=== PATIENT | male | born 1935 | race Caucasian/White ===

== ENCOUNTER 2017-12-20 07:45 | Outpatient (CLI) | payer MEDICARE ==
[2017-12-20] MEDS ORDERED: LIDOCAINE WITH 8.4% SOD BICARB 3 ML DISP.SYRIN. INJ ONE (08:15)
[2017-12-20] MEDS ORDERED: IOHEXOL 180 MG/ML 10 ML VIAL. IT ONE (08:15)
--- NOTE | 2017-12-20 10:24 | RAD ---
Lumbar myelogram, 12/20/2017: History: Back and right leg pain, radiculopathy Under local anesthesia, aseptic conditions and fluoroscopic guidance a lumbar puncture was performed at the upper L3 level utilizing a 25-gauge Roberth spinal needle. Good clear CSF flow was obtained following which 14 cc of Omnipaque 180 was injected into the thecal sac. The spinal needle was then removed and hemostasis obtained. Appropriate digital images were then obtained. 2.5 minutes of fluoroscopy time is utilized. 11 fluoroscopic spot images were recorded. The patient tolerated the procedure well and was sent to CT in good condition. Following findings were delineated on the myelogram: 1. There are moderate anterior extradural defects at L2-3, L3-4 and L4-5 with mild anterior extradural defects at L1-2 and L5-S1. There also moderate posterior extradural defects at L3-4 and L2-3. There is mild associated central spinal stenosis at L2-3, best seen on the upright views. 2. There is a moderate left anterolateral extradural defect at L3-4. 3. There is a moderate right anterolateral extradural defect centered just inferior to the L4-5 disc level on the upright oblique view, at the level of the origin of the right L5 nerve root sleeve. There is associated poor opacification of the right L5 nerve root sleeve in this position. 4. There is slight anterolisthesis at L4-5 on the upright flexion view. 5. There is mild central spinal stenosis at L2-[address] upright views[address] CT of the lumbar spine-post myelogram, 12/20/2017: Multidetector CT imaging was performed with multiplanar reconstructions produced. The following findings are delineated: 1. No fracture or destructive bony lesion is seen. 2. At L1-2 there is no significant posterior disc bulge or protrusion. The central spinal canal and neural foramina are well maintained. 3. At at L2-3 there is mild broad-based posterior disc bulging. The thecal sac measures 10 mm in AP diameter at the midline in the supine position for the CT scans. The neural foramina are well maintained. 4. At L3-4 there is moderate broad-based posterior disc bulging. There are moderate degenerative changes involving the facet joints. The central spinal canal is well maintained. There is moderate inferior foraminal narrowing, right greater than left. 5. At L4-5 there is moderate broad-based posterior disc bulging which is most prominent laterally on the right. There are moderate degenerative changes involving the facet joints bilaterally. The central spinal canal is not stenotic. There is moderate inferior foraminal encroachment, more so on the right. 6. At L5-S1 there is mild broad-based posterior disc bulging. There are moderate degenerative changes involving the facet joints. The central spinal canal is well maintained. There is minimal inferior foraminal narrowing bilaterally. 7. Incidental note is made of extensive aortoiliac calcific plaquing. Bilateral renal cysts are present. One of these in the lower pole of the left kidney demonstrates minimally calcified septae. Moderate sigmoid diverticulosis is present. A cystic structure along the left side of the urinary bladder is most likely related to a penile implant type device IMPRESSION: 1. Mild to moderate multilevel degenerative changes as described above. 2. Mild central spinal stenosis at L2-3 in the upright position. 3. Extensive facet joint arthropathy at L4-5 with slight anterolisthesis in the upright flexion position. 4. Moderate posterior disc protrusion and foraminal narrowing at L4-5, right greater than left. 5. Moderate right foraminal narrowing at L3-4. PQRS Compliance Statement: One or more of the following individualized dose reduction techniques were utilized for this examination: 1. Automated exposure control 2. Adjustment of the mA and/or kV according to patient size 3. Use of iterative reconstruction technique
== END 2017-12-20 10:45 | disposition home or self-care (01) ==
LOC: RAD 07:45
PROVIDERS: ATTEND Neurological Surgery
DX: M48.061 Spinal stenosis, lumbar region without neurogenic claudication (principal); M51.26 Other intervertebral disc displacement, lumbar region; M51.36 Other intervertebral disc degeneration, lumbar region; M12.88 Other specific arthropathies, not elsewhere classified, other specified site; N28.1 Cyst of kidney, acquired; K57.30 Diverticulosis of large intestine without perforation or abscess without bleeding
CPT/HCPCS: 72132; 72265; Q9965

== ENCOUNTER → 2017-12-27 | Outpatient (CLI) | payer MEDICARE ==
[~2017-12-27] MED LIST: CHOL10003 PO; DOCU-109 PO; DOXA8TAB59 PO; FINA5TAB4 PO; GABA-585 PO; GLUC100018 PO; HYDR-2758 PO; METH750T2 PO; MULT1TAB52 PO; SIMV40TA3 PO; TIOT18CA IH
[2017-12-27 13:31] LABS: BASO # 0.1 x10^3/uL (0.0-0.2); BASO % 1 % (0-3); EOS # 0.1 x10^3/uL (0.0-0.7); EOS % 2 % (0-3); HEMATOCRIT 40.1 % (39.0-53.0); LYMPH # 1.7 x10^3/uL (1.0-4.8); LYMPH % 19 % (24-48); MEAN CORPUSCULAR HEMOGLOBIN 33 pg (25-35); MEAN CORPUSCULAR HGB CONC 35 g/dL (31-37); MEAN CORPUSCULAR VOLUME 93 fL (79-100); MONO # 0.5 x10^3/uL (0.0-1.1); MONO % 6 % (0-9); NEUT # 6.4 x10^3uL (1.8-7.7); NEUT % 73 % (31-73); PLATELET COUNT 180 x10^3/uL (140-400); RED BLOOD COUNT 4.31 x10^6/uL (4.30-5.70); WHITE BLOOD COUNT 8.8 x10^3/uL (4.0-11.0)
[2017-12-27 13:53] LABS: ALBUMIN 3.7 g/dL (3.4-5.0); CALCIUM 9.2 mg/dL (8.5-10.1); CREATININE 0.8 mg/dL (0.7-1.3); GFR 92.5; POTASSIUM 4.3 mmol/L (3.5-5.1); TOTAL BILIRUBIN 0.5 mg/dL (0.2-1.0); TOTAL PROTEIN 7.4 g/dL (6.4-8.2)
== END | disposition home or self-care (01) ==
LOC: SURGPAT 12:46
PROVIDERS: ATTEND Neurological Surgery
DX: Z01.818 Encounter for other preprocedural examination (principal); M48.062 Spinal stenosis, lumbar region with neurogenic claudication; M51.16 Intervertebral disc disorders with radiculopathy, lumbar region; Z88.0 Allergy status to penicillin
CPT/HCPCS: 36415; 80053; 85025; 87641

== ENCOUNTER 2018-01-06 08:01 | Observation (INO) | payer MEDICARE ==
--- NOTE | 2018-01-05 23:47 | PREOP HP ---
DATE OF SERVICE: 01/06/2018 HISTORY OF PRESENT ILLNESS: The patient is a pleasant 82-year-old who in 2017 underwent lumbar surgery by another physician and did poorly. His problem is low back pain and pain, which radiates in the anterior lateral thigh on the right side as well as the right lateral leg, foot. He has a tingling sensation in the same distribution. The problem has been present for about 1 year. He rates his pain as a 2-3/10. Standing, sitting and lying for a time increases pain. Changing positions seems to help. He has had epidural steroid injections, which did not help significantly. He has had physical therapy, which was not of benefit. He has had a spinal cord stimulator without help. I sent him with lumbar myelography. PAST MEDICAL HISTORY: Prostate cancer, COPD, scarlet fever, shingles, diabetes. PAST SURGICAL HISTORY: Left shoulder surgery in 2013, right shoulder surgery in 2014, [facility] 2016, laminectomy in 2017. SOCIAL HISTORY: Retired. . Exercises weekly. Denies current substance, alcohol and tobacco use. Drinks coffee daily. ALLERGIES: PENICILLIN. CURRENT MEDICATIONS: Simvastatin, doxazosin, finasteride, gabapentin, vitamin D, glucosamine, multivitamin, Motrin and Tylenol. REVIEW OF SYSTEMS: A 12-point review of systems was obtained and is noncontributory except that mentioned above. PHYSICAL EXAMINATION: NEUROSURGERY EXAMINATION: GENERAL APPEARANCE: Alert, pleasant, in no acute distress. HEAD: Normocephalic, atraumatic. SKIN: Warm and dry. Well-healed lumbar incision. MUSCULOSKELETAL: Lumbar paraspinal muscle bulk is normal, restricted range of motion of the lumbar spine, [id number] tenderness of lower lumbar spine to palpation, normal range of motion of the lower extremities bilaterally. EXTREMITIES: No clubbing, cyanosis or edema. NEUROLOGIC: Alert and oriented x 3, normal recent and remote memory, strength 5/5 in bilateral lower extremities, sensory was intact to light touch in bilateral lower extremities except for a decrease in light touch with involving right foot, reflexes were trace and symmetric in the lower extremities bilaterally, negative straight leg raising bilaterally, antalgic gait favoring the right leg. IMAGING: I reviewed a lumbar myelogram and post-myelogram CT scan. On that study, there is a moderate right anterior lateral extradural defect centered just inferior to the L4-L5 disk on the right oblique view. There is a poor opacification of the right L5 nerve root. On the CT portion, there is a moderate broad-based posterior disk bulge, which is prominent laterally on the right side. There is moderate inferior foraminal encroachment. ASSESSMENT/PLAN: I believe the problems at L4-L5 on the right are responsible for the majority of his pain. This appears to be primarily degenerative arthritis plus significant right-sided disc bulging. My recommendation is that we perform a micro hemilaminotomy and transforaminal decompression to decompress the proximal right foramen and right L5 root. I did discuss this with him in detail. He would like to go ahead. We will make the arrangements. DONALD HERNANDEZ MD DR: SHERWIN/marion JOB#: [id number] / [id number] BRIANA
[2018-01-06] VITALS (7 sets, daily range): BP systolic 102–163; BP diastolic 51–61
[~2018-01-06] VITALS: Ht 170.2 cm; Wt 73.3 kg
[~2018-01-06 08:01] MED LIST changes: +BACITRACIN 50,000 UNIT in IV NORMAL SALINE 1000ML BAG 1,000 ML IRR ONE; -DOCU-109 PO; -HYDR-2758 PO; -METH750T2 PO; +VANCOMYCIN 1GM IVPB FOR OMNI 250 ML IV ONE
[2018-01-06] MEDS ORDERED: GELATIN SPONGE SIZE 100. ONE (08:44)
[2018-01-06] MEDS ORDERED: BUPIVAC MPF-EPI 0.5%-1:200000 30 ML VIAL. ONE (08:44)
[2018-01-06] MEDS ORDERED: THROMBIN TOPICAL 20,000 UNIT SPRAY.SYRN KIT TP ONE (08:44)
[2018-01-06] MEDS ORDERED: KETOROLAC 60 MG/2 ML INJ FOR OR. ONE (08:44)
[2018-01-06] MEDS ORDERED: SCOPOLAMINE 1.5MG PATCH. TD ONE (09:00)
[2018-01-06] MEDS: IV RINGERS,LACTATED 1000ML 1,000 ML IV SCH ×2 (09:04→19:39)
[2018-01-06] MEDS ORDERED: MIDAZOLAM HCL/PF 2 MG/2 ML VIAL. ONE (10:17)
[2018-01-06] MEDS ORDERED: ROCURONIUM 50 MG/5 ML VIAL. ONE (10:18)
[2018-01-06] MEDS ORDERED: REMIFENTANIL 2 MG VIAL. IV ONE (10:18)
[2018-01-06] MEDS ORDERED: PHENYLEPHRINE in 0.9% NACL PF 1 MG/10 ML SYRINGE. IV ONE (10:18)
[2018-01-06] MEDS ORDERED: fentaNYL PF VIAL 250 MCG/5 ML VIAL ONE (10:18)
[2018-01-06] MEDS ORDERED: 0.9 % SODIUM CHLORIDE 20 ML VIAL. IJ ONE ×2 (10:18)
[2018-01-06] MEDS ORDERED: PROPOFOL 50 ML IV ONE (10:18)
[2018-01-06] MEDS ORDERED: PROPOFOL 20 ML IV ONE (10:19)
[2018-01-06] MEDS ORDERED: ONDANSETRON PF 4 MG/2 ML VIAL. ONE (10:19)
[2018-01-06] MEDS ORDERED: DEXAMETHASONE SOD PHOS 20 MG/5 ML VIAL. ONE (10:19)
[2018-01-06] MEDS ORDERED: DESFLURANE > 120 MINUTES IH ONE (10:19)
[2018-01-06] MEDS ORDERED: LIDOCAINE 2% PF Vial for OR 5 ML VIAL. ONE (10:19)
[2018-01-06] MEDS ORDERED: DEXAMETHASONE SOD PHOS 20 MG/5 ML VIAL. IV ONE (11:15)
[2018-01-06] MEDS ORDERED: IV RINGERS,LACTATED 1000ML 1,000 ML IV SCH (11:36)
[2018-01-06] MEDS ORDERED: fentaNYL PF VIAL 100 MCG/2 ML VIAL IV PRN ×2 (11:45→16:15)
[2018-01-06] MEDS ORDERED: ONDANSETRON PF 4 MG/2 ML VIAL. IV PRN (11:45)
[2018-01-06] MEDS ORDERED: HYDROmorphone 2 MG/ML VIAL IV PRN (11:45)
[2018-01-06] MEDS ORDERED: MORPHINE SULFATE 2 MG/ML VIAL. IV PRN (11:45)
[2018-01-06] MEDS ORDERED: PROCHLORPERAZINE 10 MG/2 ML VIAL. IV PRN (11:45)
[2018-01-06] MEDS ORDERED: LIDOCAINE 1% PF 2 ML VIAL. ID PRN (11:45)
[2018-01-06] MEDS ORDERED: PHENYLEPHRINE 10 MG/ML VIAL. ONE (13:27)
[2018-01-06] MEDS ORDERED: ePHEDrine PF IN SALINE 50 MG/5 ML DISP.SYRIN IV ONE (13:31)
[2018-01-06] MEDS ORDERED: NEOSTIGMINE METHYLSULFATE 5 MG/5 ML SYRINGE. ONE (15:22)
[2018-01-06] MEDS ORDERED: GLYCOPYRROLATE 1 MG/5 ML VIAL. ONE (15:22)
[2018-01-06] MEDS: fentaNYL PF VIAL 100 MCG/2 ML VIAL IV PRN ×2 (16:00→16:16)
[2018-01-06] MEDS ORDERED: 0.9 % SODIUM CHLORIDE 10 ML DISP.SYRIN. IV PRN (16:15)
[2018-01-06] MEDS ORDERED: MAGNESIUM HYDROXIDE 2,400 MG/30 ML ORAL.SUSP. PO PRN (16:15)
[2018-01-06] MEDS ORDERED: CALCIUM CARBONATE 500 MG TAB.CHEW PO PRN (16:15)
[2018-01-06] MEDS ORDERED: ACETAMINOPHEN 325 MG TABLET. PO PRN (16:15)
[2018-01-06] MEDS ORDERED: diphenhydrAMINE HCL 25 MG CAPSULE PO PRN (16:15)
[2018-01-06] MEDS ORDERED: NON FORMULARY ITEM (Tiotropium Bromide (Spiriva) 2 INH) IH PRN (16:15)
[2018-01-06] MEDS ORDERED: HYDROcodone/APAP 5/325MG 1 TAB TABLET PO PRN (16:15)
[2018-01-06] MEDS ORDERED: MAG HYDROX/ALUMINUM HYD/SIMETH 30 ML ORAL.SUSP PO PRN (16:15)
[2018-01-06] MEDS: HYDROcodone/APAP 5/325MG 1 TAB TABLET PO PRN (16:51)
[2018-01-06] MEDS: METHOCARBAMOL 750 MG TABLET PO SCH (20:09)
[2018-01-06] MEDS: DOCUSATE SODIUM 100 MG CAPSULE. PO SCH (20:09)
[2018-01-06] MEDS: POTASSIUM CL 20MEQ D5-0.45NACL 1,000 ML IV SCH (20:20)
[2018-01-06] MEDS: IPRATRPIUM/ALBUTEROL 0.5/2.5MG 3 ML NEBU. NEB SCH (20:30)
[2018-01-06] MEDS ORDERED: SIMVASTATIN 40 MG TABLET. PO SCH (21:00)
[2018-01-07] MEDS ORDERED: FINASTERIDE 5 MG TABLET. PO SCH ×2 (02:45→09:00)
[2018-01-07 03:00] VITALS: BP 107/54
[2018-01-07] MEDS: POTASSIUM CL 20MEQ D5-0.45NACL 1,000 ML IV SCH (06:20)
[2018-01-07 07:00] VITALS: BP 119/58
--- NOTE | 2018-01-07 08:27 | DISCH ---
DISCHARGE INSTRUCTIONS Condition on Discharge Condition on Discharge: Stable Activity After Discharge Activity Instructions for Disc: Activity as tolerated, Avoid exertion Other activity instructions: no driving for a week Bathing Instructions: Shower-keep dressing dry, No Tub Bath until see Lifting Instructions after Dis: No heavy lifting, No pulling or pushing, Do not lift >10 pounds Diet after Discharge Additional Diet Restrictions: resume home diet Wound Incision Care Wound/Incision Care: Ice to area for comfort Other wound/incision instructi: may remove dressing in 48 hrs if dry, then may shower, no soaking Contacting the after DC Call your doctor for: Concerns you may have Follow-Up Follow up with: Dr. Hernandez's nurse in 2 weeks [phone] DONALD HERNANDEZ MD Jan 07, 2018 08:27
[2018-01-07] MEDS ORDERED: METH750T2 PO (08:30)
[2018-01-07] MEDS ORDERED: DOCU-109 PO (08:30)
[2018-01-07] MEDS ORDERED: HYDR-2758 PO (08:30)
[2018-01-07] MEDS: DOCUSATE SODIUM 100 MG CAPSULE. PO SCH (08:44)
[2018-01-07] MEDS: METHOCARBAMOL 750 MG TABLET PO SCH ×2 (08:44→14:08)
[2018-01-07] MEDS ORDERED: GABAPENTIN 100 MG CAPSULE. PO SCH (09:00)
[2018-01-07] MEDS ORDERED: NON FORMULARY ITEM (Glucosamine Sulfate 2KCL (Glucosamine) 500 MG) PO SCH (09:00)
[2018-01-07] MEDS ORDERED: MULTIVITAMIN with MINERAL TABLET. PO SCH (09:00)
[2018-01-07] MEDS ORDERED: CHOLECALCIFEROL (VITAMIN D3) 1,000 UNIT TABLET PO SCH (09:00)
[2018-01-07] MEDS ORDERED: DOXAZOSIN MESYLATE 4 MG TABLET. PO SCH (09:00)
[2018-01-07] MEDS: IPRATRPIUM/ALBUTEROL 0.5/2.5MG 3 ML NEBU. NEB SCH ×2 (10:05→13:48)
[2018-01-07 11:00] VITALS: BP 130/66
[2018-01-07] MEDS: IV RINGERS,LACTATED 1000ML 1,000 ML IV SCH (11:55)
[2018-01-07] MEDS: HYDROcodone/APAP 5/325MG 1 TAB TABLET PO PRN (14:16)
--- NOTE | 2018-01-10 18:06 | PATHOLOGY ---
[facility] Accession Number: [id number] . 01 Material submitted: . LUMBAR DECOMPRESSION AND DISC . 01 Clinician provided ICD-10: M48.061 . 01 Clinical history: . Lumbar stenosis with neurogenic claudication, herniated disc with radiculopathy . 02 Diagnosis: Segments of fibrocartilaginous, fibroadipose, and skeletal muscle tissue and bone, lumbar decompression and disc: - Degenerative changes of fibrocartilaginous tissue. (JPM:joão; 01/10/2018) QMS/01/10/2018 . 02 Comment: There is no evidence of an acute inflammatory process or malignancy. . 02 Electronically signed: . Frankie Yuan MD, Pathologist NPI- [id number] . 01 Gross description: . The specimen is received in formalin, labeled "Kenn Bhatti, lumbar decompression and disc", are multiple cruz-white rubbery soft tissues admixed with lakhani bone measuring 3.0 x 2.4 x 0.9 cm in aggregate. Fur Finisher tissue is submitted in A1 following decalcification. ([facility]; 01/09/2018) SHS/SHS . 02 Pathologist provided ICD-10: M51.36 . 02 CPT . 972848, [id number] Specimen Comment: A courtesy copy of this report has been sent to Specimen Comment: [phone]. Specimen Comment: Report sent to Performed at: 01 [facility] [address], [place] [id number] MD Kodak Gipson MD Phone: [phone] Performed at: 02 [facility] [address] [place], [place] [id number] MD Frankie Yuan MD Phone: [phone]
--- NOTE | 2018-01-17 20:41 | OP ---
DATE OF SURGERY: 01/06/2018 PREOPERATIVE DIAGNOSES: Herniated lumbar disc with lateral recess and foraminal stenosis L4-L5 right with right lumbar radiculopathy. POSTOPERATIVE DIAGNOSES: Herniated lumbar disc with lateral recess and foraminal stenosis L4-L5 right with right lumbar radiculopathy. OPERATION PERFORMED: Reop hemilaminotomy combined with transforaminal exposure L4-L5 right, reoperation with decompression of the right L5 and L4 nerve roots with microdiscectomy right L4-L5. The operation was done with EMG monitoring, SSEP monitoring, fluoroscopy, microscopic dissection. SURGEON: Kendell Hernandez M.D. GROUP SOCIAL WORKER: SELINA Jarrett, assisted with the surgery. She assisted with the microdecompression as well as the closure. OPERATIVE INDICATIONS: The patient is a very pleasant 82-year-old man who developed severe intractable back and right leg pain and underwent surgery at another institution and did not improve. I studied him with lumbar myelography. On imaging studies, he had the above-mentioned finding and I recommended lumbar microsurgery. I spoke with him about the surgery and the risks involved. We discussed the technique of the operation. He understood and he wished to go ahead. DESCRIPTION OF PROCEDURE: Following general endotracheal anesthesia, the patient was positioned prone on the Dusty table. Lumbar region prepped and draped in standard fashion. VIKTOR hose and AV impulse boots were applied for DVT prophylaxis. A microscope was draped. Fluoroscopy was draped and brought in the field. Monitoring was established. Vancomycin 1 gram was given prior to surgery. Using fluoroscopic guidance, a midline incision was made directly over the L4-L5 interspace. I dissected down through skin and subcutaneous tissue, reflected the paraspinal muscles laterally and placed a [place] micro disc retractor. I brought in curettes and began to scrape away scar overlying the edges of his previous hemilaminotomy and this was accomplished, and I also worked laterally and removed scar from over the facet and lateral lamina. During this time, I brought in the microscope and using microscopic technique, I brought in the high speed air drill, enlarged his hemilaminotomy superiorly significantly and laterally creating a transforaminal exposure as well as enlarging his previous foraminotomy and visualized the dura and the exiting L5 root and then working superiorly to the level of the disc, I gently freed off scar from beneath the root, retracted the root medially. I entered into the disc space and there was subligamentous disc material as well as a disc within the disc space and I performed a generous discectomy. When this was completed, I worked laterally and visualized the exiting L4 root. This was pushed superiorly by foraminal disc bulging and I carried my exposure farther laterally and then began to tease and milk back disc from the foramen, removing with a micropituitary. I was able then to follow the L4 root out laterally and I passed the [place] dental along the inferior aspect of the root and again was able to bring disc back and remove this from the field. As I worked, the region became very well decompressed. I explored carefully. Hemostasis was excellent. I did use a bipolar cautery as well as bone wax as necessary. I had excellent decompression of both roots. I irrigated copiously. I then closed the wound in layers with absorbable suture and skin was closed with 4-0 subcuticular stitch. The operation went very well and the patient was taken uneventfully to recovery room with normal strength in lower extremities and I was quite pleased with the surgery. KENDELL HERNANDEZ MD DR: SHERWIN/marion JOB#: [id number] / [id number] BRIANA
== END 2018-01-07 14:55 | disposition home or self-care (01) ==
LOC: SURG 08:01 → 4 NORTH 16:36
PROVIDERS: ADMIT Neurological Surgery; ATTEND Neurological Surgery
DX: M51.16 Intervertebral disc disorders with radiculopathy, lumbar region (principal); M48.062 Spinal stenosis, lumbar region with neurogenic claudication; J44.9 Chronic obstructive pulmonary disease, unspecified; E11.9 Type 2 diabetes mellitus without complications; Z85.46 Personal history of malignant neoplasm of prostate; Z88.0 Allergy status to penicillin; Z79.899 Other long term (current) drug therapy
CPT/HCPCS: 63030; 76000; 88304; 88311; 94640; 94760; 97110; 97116; 97162; 97530; A7015; G0378; G0379; G8978; G8979; G8980; J1100; J1885; J2001; J2370; J2405; J2704; J2710; J3010; J3370; J3490; J7030; J7120; J7620; J2250